=== PATIENT | female | born 1960 | race Caucasian/White ===

== ENCOUNTER 2017-02-11 18:02 | Emergency (ER) | payer BC, OTHER ==
--- NOTE | 2017-02-11 18:29 | ED.PDOC ---
History of Present Illness - General Chief Complaint: General Stated Complaint: general Time Seen by Provider: 02/11/17 18:09 Source: patient, RN notes reviewed, Vital Signs reviewed Exam Limitations: no limitations - History of Present Illness Initial Comments: Patient presents to ER with multiple complaints. She reports a fever to 101.1 at home. Dull chest pain that started @ 11:00 today. The pain comes and goes and is dull in nature. + nausea. Minimal SOB. She also reports dysuria, suprapubic pain and urinary frequency. Timing/Duration: constant - over to past 7 hours Severity: mild Improving Factors: medication - She took an aspirin at home which helped with both the fever and chest pain Worsening Factors: nothing Associated Symptoms: chest pain, fever/chills, nausea/vomiting, shortness of breath Allergies/Adverse Reactions: Allergies NO KNOWN ALLERGY Allergy (Verified 02/11/17 18:20) Home Medications: Ambulatory Orders Nitrofurantoin Monohydrate Mac [Macrobid] 100 mg PO BID #20 cap 02/11/17 Review of Systems - Review of Systems Constitutional: States: chills, fever, malaise. Denies: diaphoresis EENTM: States: no symptoms reported Respiratory: States: short of breath. Denies: cough Cardiology: States: chest pain. Denies: edema, palpitations, syncope Gastrointestinal/Abdominal: States: abdominal pain - mild, dull, suprapubic pain , nausea. Denies: vomiting Genitourinary: States: dysuria, frequency Musculoskeletal: States: no symptoms reported Skin: States: no symptoms reported Neurological: States: no symptoms reported All other Systems: No Change from Baseline Past Medical History (General) - Patient Medical History Hx Cardiac Disorders: Yes - [place] Surgical History: Hysterectomy - Vaccination History Hx Influenza Vaccination: Yes Hx Pneumococcal Vaccination: No - Social History Hx Tobacco Use: No Hx Alcohol Use: No Hx Substance Use: No Hx Substance Use Treatment: No Hx Depression: No - Activities of Daily Living Hospice Agency (if applicable):: None - Female History Patient is a Female of Child Bearing Age (10 -59 yrs old): No Patient : No Family Medical History - Family History Mother Family History: Unknown Physical Exam - Physical Exam General Appearance: Alert, Comfortable, No apparent distress, Well Developed, Well Groomed, Well Hydrated, Well Nourished Neck: full range of motion, supple, normal inspection Respiratory: chest non-tender, lungs clear, normal breath sounds, no respiratory distress, no accessory muscle use Cardiovascular/Chest: normal peripheral pulses, regular rate, rhythm, no edema, no gallop, no JVD, no murmur Peripheral Pulses: dorsalis pedis,right: 2+, dorsalis pedis,left: 2+ Gastrointestinal/Abdominal: normal bowel sounds, non tender, soft, no organomegaly, no pulsatile mass Extremity: normal range of motion, normal inspection Neurologic: alert, normal mood/affect, oriented x 3 Skin Exam: normal color, warm/dry Comments: Vital Signs 02/11/17 18:10 Temperature 99.9 F H Pulse Rate [ 85 pulse ox] Respiratory 20 Rate Blood Pressure 155/75 [Left Arm] O2 Sat by Pulse 20 L Oximetry Progress - Progress Progress: 02/11/17 19:10 Patient with no acute changes on EKG and normal cardiac enzymes 7 hours after onset of CP. Unlikely cardiac in origin. Symptoms and hematuria suggest UTI. Will send culture and start Macrobid - Results/Orders Results/Orders: Laboratory Tests 02/11/17 02/11/17 02/11/17 18:20 18:20 18:20 WBC 9.5 RBC 4.89 Hgb 14.2 Hct 42.3 MCV 86.6 MCH 29.0 MCHC 33.4 RDW 14.1 Plt Count 220 MPV 8.5 Absolute Neuts (auto) 8.30 H Absolute Lymphs (auto) 0.80 L Absolute Monos (auto) 0.40 Absolute Eos (auto) 0.00 Absolute Basos (auto) 0.00 Neutrophils % 87.1 H Lymphocytes % 8.0 L Monocytes % 4.5 Eosinophils % 0.2 L Basophils % 0.2 Sodium 140 Potassium 4.1 Chloride 104 Carbon Dioxide 27 Anion Gap 13.1 BUN 12 Creatinine 0.95 BUN/Creatinine Ratio 12.6 Random Glucose 117 H Serum Osmolality 280.2 Calcium 9.4 Total Bilirubin 0.6 AST 17 ALT 15 Alkaline Phosphatase 90 Creatine Kinase 68 CK-MB (CK-2) 1.1 CK-MB (CK-2) % Not Reportable Troponin I < 0.02 Serum Total Protein 7.7 Albumin 4.8 Globulin 2.9 Albumin/Globulin Ratio 1.7 Urine Color Yellow Urine Appearance Clear Urine pH 5.5 Ur Specific [place] <= 1.005 Urine Protein Negative Urine Glucose (UA) Negative Urine Ketones Negative Urine Blood Small H Urine Nitrite Negative Urine Bilirubin Negative Urine Urobilinogen 0.2 Ur Leukocyte Esterase Negative Urine RBC 0 Urine WBC 0 Ur Epithelial Cells 0 Urine Bacteria 0 - EKG/XRAY/CT EKG: Sinus, nonspecific ST T wave Chg XRAY: chest - Normal per Radiologist Departure - Departure Clinical Impression: Urinary tract infection Qualifiers: Urinary tract infection type: acute cystitis Hematuria presence: with hematuria Qualified Code(s): N30.01 - Acute cystitis with hematuria Time of Disposition: 19:13 Disposition: Discharge to Home or Self Care Condition: Good Departure Forms: ED Discharge - Pt. Copy, Patient Portal Self Enrollment Instructions: DI for Urinary Tract Infection (UTI) Diet: resume usual diet Activity: increase activity as tolerated Referrals: Gillian Cortez FNP [Primary Care Provider] - 1-2 Weeks Prescriptions: Nitrofurantoin Monohydrate Mac [Macrobid] 100 mg PO BID #20 cap Home Medications: Ambulatory Orders Nitrofurantoin Monohydrate Mac [Macrobid] 100 mg PO BID #20 cap 02/11/17
--- NOTE | 2017-02-11 18:37 | RAD ---
EXAM DESCRIPTION: Chest,1 View CLINICAL HISTORY: 56 years Female chest pain COMPARISON: 07/17/2011 FINDINGS: The cardiomediastinal silhouette appears unremarkable. No consolidating infiltrates or pleural effusions. No pneumothorax. IMPRESSION: No acute abnormality is identified. Electronically signed by: Deena Davalos 02/11/2017 6:36 PM CDT
[2017-02-11] MEDS ORDERED: NITROFURANTOIN MONOHYDRATE MAC 100 MG CAP PO ONE (19:11)
[2017-02-11 19:30] VITALS: BP 137/77; TEMP 99.5; O2SAT 100
== END 2017-02-11 19:30 | disposition home or self-care (01) ==
LOC: ER 18:02
DX: N30.01 Acute cystitis with hematuria (principal); R07.9 Chest pain, unspecified; I25.2 Old myocardial infarction

== ENCOUNTER 2017-08-28 09:21 | Emergency (ER) | payer BC, OTHER ==
[2017-08-28 10:31] VITALS: TEMP 99
--- NOTE | 2017-08-28 10:54 | ED.PDOC ---
History of Present Illness - General Chief Complaint: ENT Problem Stated Complaint: cough, sorethroat Time Seen by Provider: 08/28/17 10:44 Source: patient - History of Present Illness Timing/Duration: abrupt Prearrival Treatment: over the counter meds Improving Factors: nothing Worsening Factors: nothing Associated Symptoms: cough, fever, malaise, sore throat Allergies/Adverse Reactions: Allergies NO KNOWN ALLERGY Allergy (Verified 08/28/17 10:31) Home Medications: Ambulatory Orders Nitrofurantoin Monohydrate Mac [Macrobid] 100 mg PO BID #20 cap 02/11/17 Oseltamivir Capsule [Tamiflu] 75 mg PO BID 5 Days #10 capsule 08/28/17 Review of Systems - Review of Systems Constitutional: States: fever, malaise, weakness EENTM: States: throat pain Respiratory: States: cough, short of breath Cardiology: States: no symptoms reported Gastrointestinal/Abdominal: States: no symptoms reported Genitourinary: States: no symptoms reported Musculoskeletal: States: no symptoms reported Skin: States: no symptoms reported Neurological: States: no symptoms reported Endocrine: States: no symptoms reported Hematologic/Lymphatic: States: no symptoms reported Past Medical History (General) - Patient Medical History Hx Cardiac Disorders: Yes - [place] Hx Hypertension: Yes Hx Gastroesophageal Reflux: Yes Surgical History: Hysterectomy - Vaccination History Hx Influenza Vaccination: No Hx Pneumococcal Vaccination: No - Social History Hx Tobacco Use: No Hx Alcohol Use: No Hx Substance Use: No Hx Substance Use Treatment: No Hx Depression: No - Female History Patient is a Female of Child Bearing Age (10 -59 yrs old): No Patient : No Family Medical History - Family History Mother Family History: Unknown Physical Exam - Physical Exam General Appearance: Alert, Ill Appearing Eye Exam: bilateral normal Nasal Exam: normal inspection Throat Exam: pharynx tenderness Neck: non-tender Cardiovascular/Respiratory: regular rate, rhythm, no M/R/G, normal peripheral pulses, no JVD, normal breath sounds Abdominal Exam: non-tender, no organomegaly Neurologic: no motor/sensory deficits, alert, normal mood/affect Skin Exam: normal color, warm/dry Progress - Results/Orders Results/Orders: THE INFLUENZA SCREEN WAS POSITIVE FOR INFLUENZA B RSS WAS NEGATIVE Departure - Departure Clinical Impression: Influenza Time of Disposition: 11:52 Disposition: Discharge to Home or Self Care Condition: Good Departure Forms: ED Discharge - Pt. Copy, Patient Portal Self Enrollment Instructions: DI for Ear Pain-Adult Diet: resume usual diet Referrals: Gillian Cortez FNP [Primary Care Provider] - 1-2 Weeks Prescriptions: Oseltamivir Capsule [Tamiflu] 75 mg PO BID 5 Days #10 capsule Home Medications: Ambulatory Orders Nitrofurantoin Monohydrate Mac [Macrobid] 100 mg PO BID #20 cap 02/11/17 Oseltamivir Capsule [Tamiflu] 75 mg PO BID 5 Days #10 capsule 08/28/17
[2017-08-28 12:11] VITALS: BP 120/73; O2SAT 91
== END 2017-08-28 12:11 | disposition home or self-care (01) ==
LOC: ER 09:21
DX: J11.1 Influenza due to unidentified influenza virus with other respiratory manifestations (principal); I25.2 Old myocardial infarction; I10 Essential (primary) hypertension; K21.9 Gastro-esophageal reflux disease without esophagitis

== ENCOUNTER 2018-10-27 14:00 | Emergency (ER) | payer BC, OTHER ==
--- NOTE | 2018-10-27 14:36 | ED.PDOC ---
History of Present Illness - General Chief Complaint: Chest Pain/AL Stated Complaint: chest pain Time Seen by Provider: 10/27/18 14:11 Source: patient - History of Present Illness Initial Comments: Pt has sharp and pressure substerbnal chest pain since this am. pt has had frequent episodes since 4 months ago and has frequent reflux. Pt has had an AL 6 yrs ago but had "clean" arteries at that time. Pain is a 2-3 /10 without SOB, nausea, or radiation Timing/Duration: 7-24 hours Severity/Quality: moderate, pressure, sharp Location: substernal Chest Pain Radiation: no radiation Activities at Onset: none Prior Chest Pain/Cardiac Workup: cardiac cath, heart attack Improving Factors: nothing Worsening Factors: nothing Nitro Today/Relief: no nitro taken today Aspirin Treatment Today: no aspirin today Associated Symptoms: denies symptoms Allergies/Adverse Reactions: Allergies NO KNOWN ALLERGY Allergy (Verified 08/28/17 10:31) Home Medications: Ambulatory Orders Lisinopril 5 mg PO DAILY 10/27/18 Magnesium 500 mg PO DAILY 10/27/18 Ranitidine HCl [Ranitidine Maximum Streng] 150 mg PO BID #30 tab 10/27/18 Simvastatin [Zocor] 10 mg PO BEDTIME 10/27/18 Sucralfate Suspension [Carafate Suspension] 1 gm PO ACHS #500 ml 10/27/18 diphenhydrAMINE HCL [Benadryl] 12.5 mg PO DAILY 10/27/18 Review of Systems - Review of Systems Constitutional: Denies: chills, diaphoresis, fever, weakness EENTM: States: no symptoms reported Respiratory: Denies: cough, short of breath Cardiology: States: chest pain. Denies: edema, palpitations, syncope Gastrointestinal/Abdominal: Denies: abdominal pain, nausea Genitourinary: States: no symptoms reported Musculoskeletal: States: no symptoms reported Skin: States: no symptoms reported Neurological: Denies: headache, weakness Hematologic/Lymphatic: Denies: anemia, blood clots, easy bruising Past Medical History (General) - Patient Medical History Hx Cardiac Disorders: Yes - [place] Hx Hypertension: Yes Hx Gastroesophageal Reflux: Yes - Vaccination History Hx Influenza Vaccination: No Hx Pneumococcal Vaccination: No - Social History Hx Tobacco Use: No Hx Alcohol Use: No Hx Substance Use: No Hx Substance Use Treatment: No Hx Depression: No - Female History Patient : No Family Medical History - Family History Mother Family History: Unknown Physical Exam - Physical Exam General Appearance: Alert, Anxious, Comfortable Eyes, Ears, Nose, Throat Exam: PERRL/EOMI, pharynx normal Neck: non-tender, full range of motion, supple - without bruits Respiratory: chest non-tender, lungs clear, normal breath sounds Cardiovascular/Chest: normal peripheral pulses, regular rate, rhythm, no edema Gastrointestinal/Abdominal: normal bowel sounds, non tender, soft Extremity: normal range of motion, non-tender, normal inspection, no pedal edema Neurologic: occupational health physician II-XII nml as tested, alert, normal mood/affect, oriented x 3 Skin Exam: normal color, warm/dry Lymphatic: no adenopathy Progress - EKG/XRAY/CT EKG: Sinus, no ST T wave changes, Abnormal Q waves - inferiorly and anteroseptal Comments: rate 79, ID 162, QRS 94 Departure - Departure Clinical Impression: Chest pain Qualifiers: Chest pain type: other chest pain Qualified Code(s): R07.89 - Other chest pain; R07.8 - Other chest pain GERD (gastroesophageal reflux disease) Qualifiers: Esophagitis presence: with esophagitis Qualified Code(s): K21.0 - Gastro- esophageal reflux disease with esophagitis Disposition: Discharge to Home or Self Care Departure Forms: ED Discharge - Pt. Copy, Patient Portal Self Enrollment Instructions: DI for Chest Pain Referrals: Gillian Cortez FNP [Primary Care Provider] - 1-2 Weeks Prescriptions: Ranitidine HCl [Ranitidine Maximum Streng] 150 mg PO BID #30 tab Sucralfate Suspension [Carafate Suspension] 1 gm PO ACHS #500 ml Home Medications: Ambulatory Orders Lisinopril 5 mg PO DAILY 10/27/18 Magnesium 500 mg PO DAILY 10/27/18 Ranitidine HCl [Ranitidine Maximum Streng] 150 mg PO BID #30 tab 10/27/18 Simvastatin [Zocor] 10 mg PO BEDTIME 10/27/18 Sucralfate Suspension [Carafate Suspension] 1 gm PO ACHS #500 ml 10/27/18 diphenhydrAMINE HCL [Benadryl] 12.5 mg PO DAILY 10/27/18
[2018-10-27] MEDS ORDERED: ALUM & MAG HYDROX-SIMETHICONE 30 ML, LIDOCAINE VISCOUS 2% 15 ML PO ONE ×2 (14:52)
[2018-10-27] MEDS ORDERED: LIDOCAINE HCL 2% (MOUTH-THROAT) 15 ML UD ONE (14:55)
[2018-10-27] MEDS ORDERED: ALUM & MAG HYDROX-SIMETHICONE 30 ML UD ONE (14:55)
--- NOTE | 2018-10-27 14:55 | RAD ---
EXAM DESCRIPTION: Chest,1 View CLINICAL HISTORY: 58 years Female, chest pain COMPARISON: 02/11/2017 IMPRESSION: Heart size and pulmonary vascularity are within normal limits. There is no airspace consolidation, pleural effusion, or pneumothorax. No acute osseous abnormality. Electronically signed by: Fransisco Barnett MD 10/27/2018 2:52 PM CDT
[2018-10-27] MEDS ORDERED: SODIUM CHLORIDE 0.9% 1000ML 1,000 ML IVS ONE (14:57)
[2018-10-27 16:04] VITALS: BP 151/88; TEMP 98.9; O2SAT 95
== END 2018-10-27 16:15 | disposition home or self-care (01) ==
LOC: ER 14:00
DX: R07.89 Other chest pain (principal); K21.0 Gastro-esophageal reflux disease with esophagitis; I25.2 Old myocardial infarction; I10 Essential (primary) hypertension; Z79.899 Other long term (current) drug therapy
CPT/HCPCS: 71045; 80053; 84484; 85025; 93005; J7030

== ENCOUNTER → 2020-03-03 | Outpatient (CLI) | payer OTHER | LOC: GMA 11:50 | PROVIDERS: ATTEND Family Medicine | DX: R07.2 Precordial pain (principal); R39.15 Urgency of urination ==

== ENCOUNTER → 2020-05-12 | Outpatient (CLI) | payer BC | LOC: GMA MATASK 14:17 | PROVIDERS: ATTEND Family Medicine | DX: I10 Essential (primary) hypertension (principal) ==